=== PATIENT | female | born 1995 | race Caucasian/White ===

== ENCOUNTER 2019-12-05 13:36 | Emergency (ER) | payer OTHER, SELFPAY ==
--- NOTE | ~2019-12-05 | CT_ITS ---
EXAMINATION: CT abdomen pelvis w con INDICATION: Abdominal pain TECHNIQUE: Computed tomographic images of the abdomen and pelvis were obtained after the administrati on of 100 cc of Omnipaque 350 intravenous contrast. The dose-length product (DLP) was 593.19 mGy-cm. Automated exposure control and iterative reconstruction technique were employed. COMPARISON: 02/18/2015 FINDINGS: The lung bases are clear. The heart size is normal. An 11 mm fluid attenuation lesion of th e right hepatic lobe likely represents a cyst. The spleen, pancreas, gallbladder, and adrenal glands are normal. The kidneys are unremarkable. No pathologically enlarged abdominal or pelvic lymph nodes are identified. There is no free intraperitoneal gas or evidence of bowel obstruction. The appendix i s normal. IMPRESSION: 1. No CT correlate for the patient's symptoms. Reviewed, dictated and finalized at location A.
[2019-12-05 13:40] VITALS: BP 136/88; PULSE 126; RESP 20; TEMP 37.2; O2SAT 100
--- NOTE | 2019-12-05 14:09 | ED.GENADULT ---
HPI - General Adult General Chief complaint: GI Bleed Stated complaint: abd pain Time Seen by Provider: 12/05/19 13:52 Source: RN notes reviewed History of Present Illness HPI narrative: Patient presents emergency department from home for abdominal pain. States that for the past 2 weeks she has been having intermittent abdominal pain described as cramping. States is been associated with diarrhea that has been having blood in the stool. She states the blood is bright red in nature and associated diarrhea. States that the pain in the abdomen is worse on the right side. She states she has had similar episodes of diarrhea of blood before in the past but usually resolves on its own. States she is had no formal work-up for this. She has any fevers or chills chest pain shortness of breath or any other symptoms Related Data Home Medications Medication Instructions Recorded Confirmed citalopram mg 12/05/19 lisinopril-hydrochlorothiazide tablet 12/05/19 topiramate 12/05/19 Allergies Allergy/AdvReac Type Severity Reaction Status Date / Time Penicillins Allergy Intermediate Dyspnea / Verified 12/05/19 15:22 SOB amoxicillin [From Amoxil] Allergy Difficulty Verified 12/05/19 15:22 Swallowing levofloxacin Allergy Rash Verified 12/05/19 15:22 Review of Systems Review of Systems: Narrative: Gen.: Denies fevers or chills ENT: Denies congestion Respiratory: Denies shortness of breath or cough CV: Denies chest pain or palpitations GI: See HPI denies burning, urgency, frequency or hematuria Musculoskeletal: Denies back pain or muscle pain Neuro: Denies numbness, tingling, weakness or focal weakness Skin: Denies rash Except as documented, all other systems reviewed and negative [facility] Past Medical History Medical History (Updated 12/05/19 @ 17:22 by Yonny Krause DO) Hypertension Social History Social History (Updated 12/05/19 @ 14:10 by Yonny Krause DO) Smoking status: Never smoker Exam Narrative: Exam Narrative: APPEARANCE: No acute distress, nontoxic, resting in bed HEENT: Normocephalic, atraumatic, OMM RESPIRATORY: No respiratory distress, clear to auscultation bilaterally with no rhonchi wheezing or rales CARDIOVASCULAR: RRR s murmur ABDOMINAL: Soft, nondistended, diffusely tender to palpation, no rebound or guarding Rectal: No hemorrhoids or fissures no active bleeding small amount of soft brown stool that is Hemoccult negative MUSCULOSKELETAl: Moves all extremities. No clubbing, cyanosis or edema. NEURO: Awake and alert. Following commands, speech normal, no focal deficits SKIN:: Warm, dry. Normal Color PSYCHIATRIC: Normal affect/mood Course Course Emergency Course: Discussed with Dr. Musa presentation work-up. Agrees to plan for discharge and follow-up as an outpatient Patient states that they are feeling much better at this time. States abdominal pain has resolved. Repeat abdominal exam shows the patient's abdomen to be soft and nontender. Discussed with patient results of workup and diagnosis. Discussed need for follow-up with primary care physician, reasons to return to the emergency department in proper use of medication. Patient understands and agrees to current treatment plan Vital Signs Vital signs: Vital Signs Temperature 99.0 F 12/05/19 13:40 Pulse Rate 126 H 12/05/19 13:40 Respiratory Rate 20 12/05/19 13:40 Blood Pressure 136/88 12/05/19 13:40 Pulse Oximetry 100 12/05/19 13:40 Temperature 99.0 F 12/05/19 13:40 Pulse Rate 94 12/05/19 16:31 Respiratory Rate 18 12/05/19 16:31 Blood Pressure 109/64 12/05/19 16:31 Pulse Oximetry 100 12/05/19 16:31 Medical Decision Making MDM Narrative Medical decision making narrative: Patient's abdomen is soft without significant pain or signs of surgical abdomen on serial exams. Lab and x-ray evaluations are reviewed and patient is felt to be a reasonable candidate for outpatient management. Rimma
[2019-12-05 14:17] LABS: Basophils Percent Auto 0.4 % (0.2-1.2); Eosinophils Percent Auto 0.4 % (0-4.4); Hematocrit 38.6 % (37.0-47.0); Hemoglobin 13.4 g/dL (12.0-15.0); Immature Granulocyte Absolute 0.03 K/mm3 (0.00-0.031); Immature Granulocyte Percent A 0.4 % (0-0.5); Lymphocytes Absolute Auto 1.21 K/mm3 (0.9-3.2); Lymphocytes Percent Auto 14.5 % (18.3-44.2); Mean Corpuscular HGB Conc 34.7 g/dl (32-36); Mean Corpuscular Hemoglobin 30.9 pg (26-34); Mean Corpuscular Volume 89.1 fl (80-100); Mean Platelet Volume 10.5 fl (7.4-10.4); Monocytes Absolute Auto 0.5 K/mm3 (0.1-0.6); Monocytes Percent Auto 5.8 % (2.6-8.5); Neutrophils Absolute Auto 6.6 K/mm3 (1.3-6.7); Neutrophils Percent Auto 78.5 % (45.5-73.1); Platelet Count Result 304 k/mm3 (150-375); Red Blood Count 4.33 M/mm3 (4.2-5.4); Red Cell Distribution Width 12.2 % (11.5-14.5); White Blood Count 8.3 K/mm3 (4.5-10.0)
[2019-12-05 14:26] LABS: Prothrombin Time 12.7 Seconds (11.1-14.7)
[2019-12-05 14:27] LABS: Partial Thromboplastin Time 27.1 SECONDS (22.3-36.8)
[2019-12-05 14:30] LABS: Lactic Acid Reflex 1.1 mmol/L (0.7-2.1)
[2019-12-05 14:31] LABS: Alanine Aminotransferase 23 U/L (4-35); Albumin Level 4.8 g/dL (3.5-5.1); Alkaline Phosphatase 64 U/L (38-126); Anion Gap 15.2 mmol/L (7-16); Aspartate Amino Transferase 28 U/L (14-36); Bilirubin,Total 0.4 mg/dL (0.2-1.3); Blood Urea Nitrogen 11 mg/dL (7-17); Calcium 9.5 mg/dL (8.4-10.2); Carbon Dioxide 22 mmol/L (22-30); Chloride 100 mmol/L (98-107); Estimated CRCL calculation 88 ml/min; Estimated Glomerular Filt Rate > 60; Glucose 124 mg/dL (65-105); Potassium 3.2 mmol/L (3.4-5.0); Sodium 134 mmol/L (137-145)
[2019-12-05] MEDS: SODIUM CHLORIDE 0.9% IV 1,000 ML 999 ML IV CONT (15:16)
[2019-12-05] MEDS: ONDANSETRON INJ 4 MG/2 ML VIAL IV PUSH (15:17)
[2019-12-05 15:50] LABS: Add Urine Microscopic? NO; Appearance Urine Clear (Clear); Bacteria Urine Trace /hpf; Bilirubin Urine Negative (Negative); Blood Urine Negative (Negative); Color Urine Colorless (Yellow); Glucose Urine UA Negative (Negative); Ketones Urine Negative (Negative); Leukocyte Esterase Ur Negative LEU/UL (Negative); Nitrate Urine Negative (Negative); Protein Urine Negative (Negative); Specific Grav Ur 1.008 (1.001-1.035); Squamous Epithelial Cell Urine Few /hpf (Few); Urobilinogen Urine Negative mg/dL (<2.0); WBC Urine 0-3 /hpf
--- NOTE | 2019-12-05 15:58 | PC.NURSE ---
pt to imaging via stretcher with radiology at this time.
[2019-12-05 16:31] VITALS: BP 109/64; PULSE 94; RESP 18; O2SAT 100
--- NOTE | 2019-12-05 16:31 | PC.NURSE ---
ERP at bedside for stool occult exam.
[2019-12-05] MEDS: DICYCLOMINE HCL INJ 20 MG/2 ML VIAL IM (16:35)
[2019-12-05] MEDS: POTASSIUM CHLORIDE 20 MEQ TABLET PO (17:37)
[2019-12-05 17:38] VITALS: BP 108/62; PULSE 90; RESP 18; O2SAT 100
[2019-12-05 18:02] VITALS: BP 107/52; PULSE 81; RESP 18; TEMP 36.8; O2SAT 99
== END 2019-12-05 18:04 | disposition home or self-care (01) ==
PROVIDERS: Emergency Provider Emergency Medicine; PCP Internal Medicine
DX: R10.9 Unspecified abdominal pain (principal); R19.7 Diarrhea, unspecified; I10 Essential (primary) hypertension
CPT/HCPCS: 36415; 74177; 80053; 81003; 81025; 83605; 85025; 85610; 85730; 86850; 86900; 86901; 96365; 96372; 96375; 99284; A9270; J0131; J0500; J2405; J7030; Q9967

== ENCOUNTER 2020-06-14 00:28 | Outpatient (CLI) | payer OTHER, SELFPAY ==
[2020-06-14 17:34] LABS: SARS-CoV-2 RNA PCR Negative
== END 2020-06-14 00:29 | disposition home or self-care (01) ==
LOC: ANHCOVIDDT 00:28
PROVIDERS: PCP Internal Medicine; Visit Provider Obstetrics & Gynecology
DX: Z01.812 Encounter for preprocedural laboratory examination (principal); Z20.822 Contact with and (suspected) exposure to COVID-19
CPT/HCPCS: C9803; U0003; U0005

== ENCOUNTER 2020-06-14 08:02 | Outpatient (CLI) | payer OTHER, SELFPAY ==
--- NOTE | 2020-06-14 08:04 | ECG_ITS ---
Measurements Intervals [place] Rate: 90 P: 47 NC: 158 QRS: 8 QRSD: 86 T: 10 QT: 335 QTc: 412 Interpretive Statements SINUS RHYTHM LOW QRS VOLTAGE IN PRECORDIAL LEADS BORDERLINE R WAVE PROGRESSION, ANTERIOR LEADS BORDERLINE T WAVE ABNORMALITY- ANT/INF LEADS BASELINE ARTIFACT- I, III, AVL, AVF BORDERLINE ECG Electronically Signed On 06-14-2020 8:18:19 [employer] by Manohar Valles D.O.
[2020-06-14 08:49] LABS: Anion Gap 8 mmol/L (8-16); Blood Urea Nitrogen 9 mg/dL (7-17); Calcium 8.2 mg/dL (8.4-10.2); Carbon Dioxide 23 mmol/L (22-30); Chloride 107 mmol/L (98-107); Estimated Glomerular Filt Rate > 60; Glucose 116 mg/dL (65-105); Potassium 3.5 mmol/L (3.4-5.0); Sodium 138 mmol/L (137-145)
== END 2020-06-14 08:03 | disposition home or self-care (01) ==
LOC: ANHSURGERY 08:04
PROVIDERS: Anesthesiology; PCP Internal Medicine; Visit Provider Obstetrics & Gynecology
DX: Z79.899 Other long term (current) drug therapy (principal); I10 Essential (primary) hypertension; Z01.812 Encounter for preprocedural laboratory examination
CPT/HCPCS: 36415; 80048; 93005

== ENCOUNTER 2020-06-17 00:41 | Day surgery (SDC) | payer OTHER, SELFPAY ==
[2020-06-10 14:03] VITALS: BMI 36.3
[2020-06-17] VITALS (10 sets, daily range): BP systolic 100–128; BP diastolic 60–78; PULSE 72–119; RESP 10–20; TEMP 36.3–37.2; O2SAT 94–100
--- NOTE | 2020-06-17 06:58 | P.PNAN_ITS ---
Anes - Initial Pre Proc Eval Procedure: Operation Date: 06/17/20 07:30 Proposed Procedures p Laparoscopic Bilateral Ovarian Cystectomy - Xochilt Christine MD Date/Time: 06/17/20 06:58 Surgeon: Xochilt Christine MD Pre Op Diagnosis: Ovarian Cysts Patient Data Age: 24 Gender: F Height: 1.5 m Weight: 81.65 kg Allergies Allergy/AdvReac Type Severity Reaction Status Date / Time Penicillins Allergy Intermediate Dyspnea / Verified 12/05/19 15:22 SOB amoxicillin [From Amoxil] Allergy Difficulty Verified 12/05/19 15:22 Swallowing levofloxacin Allergy Rash Verified 12/05/19 15:22 Home Medications Medication Instructions Recorded Confirmed Type lisinopril-hydrochlorothiazide 20 tablet PO DAILY 12/05/19 06/10/20 History topiramate 25 mg PO DAILY 12/05/19 06/10/20 History bupropion HCl 150 mg PO DAILY 06/10/20 06/10/20 History norethindrone-e.estradiol-iron [Lo 1 tablet PO DAILY 06/10/20 06/10/20 History Loestrin Fe] sertraline 50 mg PO DAILY 06/10/20 06/10/20 History Patient hx anesthesia problems: none Family hx anesthesia problems: none [facility] Past Medical History Medical History (Updated 06/17/20 @ 07:00 by Von Britt MD) Anxiety Hypertension Obesity Social History Social History (Updated 12/05/19 @ 14:10 by Yonny Krause DO) Smoking status: Never smoker Tobacco type: e-cigarettes/vaping Second hand tobacco smoke exposure: No Additional smoking assessment comments: VAPES BUT ONLY RARELY Alcohol intake: current Drinks per week: 1 Substance use: never Substance use type: does not use Living arrangements: with family Additional living arrangements comments: LIVES WITH MOM AND SISTER Spiritual care concerns: No Anes - Eval Final PreProcedure Day of Procedure 06/17/20 06:58 Patient weight: obese Heart: regular rate and rhythm Lungs: clear to auscultation and normal air movement Airway: Mallampati scale class II Neurological: alert and oriented Last oral intake: >/= 8 hours ASA classification: III Emergent: no Anesthetic plan: proceed Anesthesia type and monitoring: general ETT Informed Consent: The patient's anesthetic plan and its attendant risks and benefits were discussed with the patient/family/POA. Questions were solicited and answers provided to the satisfaction of the patient/family/POA.
[2020-06-17] MEDS: ACETAMINOPHEN 500 MG TABLET 1000 MG PO (07:01)
[2020-06-17] MEDS: LACTATED RINGERS 1,000 ML 30 ML IV CONT ×2 (07:05→08:49)
[2020-06-17] MEDS: KETOROLAC 15 MG/ML VIAL (*BKC) IV PUSH (07:09)
--- NOTE | 2020-06-17 07:18 | WPDHPUPDATE1 ---
History and Physical Update Update Date/Time: 06/17/20 07:18 History and Physical has been reviewed, including an updated exam of the patient. There are NO changes in the patient's condition. Risks, benefits, and alternatives have been discussed and questions answered. Patient agrees to proceed with procedure.
[2020-06-17] MEDS: fentaNYL CITRATE INJ (*CRX) 100 MCG/2 ML VIAL 25 MCG IV PUSH ×4 (08:57→09:10)
--- NOTE | 2020-06-17 09:06 | PM.PROC ---
Procedure Note - Detailed Date of procedure: 06/17/20 Pre-op diagnosis: Ovarian Cysts Pelvic Pain Post-op diagnosis: same (endometriosis) Procedure performed: Laparoscopic Bilateral ovarian cystectomy, resection of paratubal cyst Description of procedure: The patient was taken the operating room. She was prepped and draped in the dorsal lithotomy position after induction of general anesthesia. A 5 mm left upper quadrant incision was made in the abdominal skin with a scalpel. A 5 mm trocar was inserted the intra-abdominal cavity under direct visualization of the scope. A 5 mm left lower quadrant incision was made with the scalp on the abdominal skin and a 5 mm trocar was inserted the intra-abdominal cavity under direct visualization of the scope. A 5 mm infraumbilical incision was made with scalpel and a 5 mm trocar was inserted into the intra-abdominal cavity under direct visualization of the scope. Large bilateral ovarian cysts removed using sharp and blunt dissection and cautery. Cyst capsules were peeled from the lumen of the cyst. Cut surfaces were were cauterized where there were bleeding. Hematoma was placed on the cut surfaces well. Paratubal cysts were removed from the right fallopian tube. This was done using sharp dissection and cautery. The pelvis was irrigated with copious amounts of normal saline. The pneumoperitoneum was reduced. The trocars were removed. The patient was taken recovery room stable condition. Sponge lap and needle counts were correct x2. [facility] Surgeon: Xochilt Christine MD Estimated blood loss (mL): 20 Drains: No Packing: No Complications: No immediate complications Condition: stable Disposition: PACU Findings: Large bilateral ovarian cysts, endometrial implant, right paratubal cysts
[2020-06-17] MEDS: HYDROmorphone HCL INJ (*CRX) 1 MG/ML SYR 0.25 MG IV PUSH ×4 (09:21→09:38)
[2020-06-17] MEDS: ONDANSETRON INJ 4 MG/2 ML VIAL IV PUSH (10:15)
[2020-06-17] MEDS: oxyCODONE HCL (*CRX) 5 MG TAB IR PO (10:39)
[2020-06-17] MEDS: SCOPOLAMINE 1.5 MG PATCH TRANSDERM (11:03)
== END 2020-06-17 11:40 | disposition home or self-care (01) ==
PROVIDERS: PCP Internal Medicine; Visit Provider Obstetrics & Gynecology
PROC: (CPT 49320; principal; 2020-06-17 07:30)
DX: N83.01 Follicular cyst of right ovary (principal); N83.02 Follicular cyst of left ovary; N83.8 Other noninflammatory disorders of ovary, fallopian tube and broad ligament; N80.3 Endometriosis of pelvic peritoneum; I10 Essential (primary) hypertension; F41.9 Anxiety disorder, unspecified; E66.9 Obesity, unspecified; Z68.36 Body mass index [BMI] 36.0-36.9, adult; F17.290 Nicotine dependence, other tobacco product, uncomplicated
CPT/HCPCS: 58662; 36415; 80048; 88305; 93005; A9270; C9803; J0330; J1100; J1170; J1885; J2250; J2405; J2704; J2710; J3010; J7030; J7120; U0003; U0005

== ENCOUNTER 2023-08-03 08:09 | Outpatient (CLI) | payer BC, OTHER, SELFPAY ==
--- NOTE | 2023-08-03 | ECG_ITS ---
Measurements Intervals [place] Rate: 87 P: 15 NH: 151 QRS: 14 QRSD: 90 T: 29 QT: 369 QTc: 445 Interpretive Statements SINUS RHYTHM LOW QRS VOLTAGE IN PRECORDIAL LEADS CANNOT RULE OUT SEPTAL INFARCT, AGE INDETERMINATE BORDERLINE ST-T WAVE ABNORMALITY- HIGH LATERAL LEADS BASELINE ARTIFACT- III, AVR, AVL, AVF ABNORMAL ECG NO PREVIOUS ECG AVAILABLE FOR COMPARISON Electronically Signed On 08-03-2023 8:54:47 CDT by Manohar Valles D.O.
== END 2023-08-03 08:10 | disposition home or self-care (01) ==
PROVIDERS: PCP Internal Medicine
DX: Z34.00 Encounter for supervision of normal first pregnancy, unspecified trimester (principal); R93.1 Abnormal findings on diagnostic imaging of heart and coronary circulation; R94.31 Abnormal electrocardiogram [ECG] [EKG]
CPT/HCPCS: 93005

== ENCOUNTER 2023-11-06 16:49 | Inpatient (IN) | payer BC, OTHER, SELFPAY ==
[2023-11-05 21:00] VITALS: BMI 40.5
[2023-11-06] VITALS (26 sets, daily range): BP systolic 101–138; BP diastolic 63–97; PULSE 80–115; TEMP 36.4
--- NOTE | 2023-11-06 17:09 | LDADM ---
This patient, Lee Ann Melgar, was admitted to Labor/Delivery/Recovery 107 on 11/06/23 at 16:49. Plans for labor, pain management and were discussed with patient. Patient/family oriented to hospital policies and general routines including ID bracelet, bed and alarms, visiting hours, pain management, procedures, bathroom and other care routines, personal items, smoking policy, room service/diet and guest tray routines, security routines, and visiting hours. Patient/Family are encouraged to report perceived risks to care and to ask questions if they do not understand what they are told or what they should do. See OBIX for further documentation.
[2023-11-06 17:35] LABS: Basophils Percent Auto 0.1 % (0.2-1.2); Eosinophils Percent Auto 0.2 % (0-4.4); Hematocrit 35.2 % (37.0-47.0); Hemoglobin 11.9 g/dL (12.0-15.0); Immature Granulocyte Absolute 0.09 K/mm3 (0.00-0.031); Immature Granulocyte Percent A 0.9 % (0-0.5); Lymphocytes Absolute Auto 1.66 K/mm3 (0.9-3.2); Lymphocytes Percent Auto 17.1 % (18.3-44.2); Mean Corpuscular HGB Conc 33.8 g/dl (32-36); Mean Corpuscular Hemoglobin 28.3 pg (26-34); Mean Corpuscular Volume 83.8 fl (80-100); Monocytes Absolute Auto 0.6 K/mm3 (0.1-0.6); Monocytes Percent Auto 6.5 % (2.6-8.5); Neutrophils Absolute Auto 7.3 K/mm3 (1.3-6.7); Neutrophils Percent Auto 75.2 % (45.5-73.1); Platelet Count Result 220 k/mm3 (150-375); Red Cell Distribution Width 13.5 % (11.5-14.5); White Blood Count 9.7 K/mm3 (4.5-10.0)
[2023-11-06 17:45] LABS: Alanine Aminotransferase 19 U/L (6-35); Albumin Level 3.9 g/dL (3.5-5.1); Alkaline Phosphatase 125 U/L (38-126); Anion Gap 8 mmol/L (4-12); Aspartate Amino Transferase 26 U/L (14-36); Bilirubin,Total 0.4 mg/dL (0.2-1.3); Blood Urea Nitrogen 6 mg/dL (7-17); Calcium 8.6 mg/dL (8.4-10.2); Carbon Dioxide 20 mmol/L (22-30); Chloride 108 mmol/L (98-107); Estimated Glomerular Filt Rate > 60; Glucose 96 mg/dL (65-110); Potassium 3.8 mmol/L (3.4-5.0); Sodium 136 mmol/L (137-145)
--- NOTE | 2023-11-06 17:57 | WPDANESEPP ---
Anes - Eval Pre Procedure Procedure: Labor epidural Date/Time: 11/06/23 17:57 Surgeon: Emmett Preop Diagnosis: Abdominal pain with contractions Pre Op Diagnosis: Induction of Labor Patient Data Age: 28 Gender: F Height: 1.5 m Weight: 91 kg Last Vital Signs Pulse 111 H 11/06/23 17:55 BP 138/82 11/06/23 17:55 Allergies Allergy/AdvReac Type Severity Reaction Status Date / Time amoxicillin [From Amoxil] Allergy Severe Difficulty Verified 06/17/20 07:11 Swallowing Penicillins Allergy Severe Dyspnea / Verified 06/17/20 07:11 SOB hydrocodone Allergy Hives Verified 11/02/23 15:27 levofloxacin AdvReac Mild Rash Verified 06/17/20 07:11 Home Medications Medication Instructions Recorded Confirmed Type sertraline 50 mg tablet 50 mg PO DAILY 06/10/20 11/06/23 History aspirin 81 mg tablet 81 mg PO DAILY 11/02/23 11/02/23 History labetalol 300 mg tablet 300 mg PO Q12H 11/02/23 11/02/23 History prenat.vits,tray,xqi-aast-aftxu 1 tablet PO DAILY 11/02/23 11/06/23 History Laboratory Tests 11/06/23 17:21 WBC 9.7 K/mm3 (4.5-10.0) RBC 4.20 M/mm3 (4.2-5.4) Hgb 11.9 L g/dL (12.0-15.0) Hct 35.2 L % (37.0-47.0) MCV 83.8 fl (80-100) MCH 28.3 pg (26-34) MCHC 33.8 g/dl (32-36) RDW 13.5 % (11.5-14.5) Plt Count 220 k/mm3 (150-375) MPV 11.0 H fl (7.4-10.4) Immature Gran % (Auto) 0.9 H % (0-0.5) Neut % (Auto) 75.2 H % (45.5-73.1) Lymph % (Auto) 17.1 L % (18.3-44.2) [place] % (Auto) 6.5 % (2.6-8.5) Eos % (Auto) 0.2 % (0-4.4) Baso % (Auto) 0.1 L % (0.2-1.2) Lymph # (Auto) 1.66 K/mm3 (0.9-3.2) [place] # (Auto) 0.6 K/mm3 (0.1-0.6) Eos # (Auto) 0.0 K/mm3 (0-0.3) Baso # (Auto) 0.0 K/mm3 (0.0-0.1) Abs Immat Gran (auto) 0.09 H K/mm3 (0.00-0.031) Absolute Neuts (auto) 7.3 H K/mm3 (1.3-6.7) Absolute Nucleated RBC 0.000 K/mm3 (0.0-0.012) Nucleated RBC % 0.0 % (0.0-0.2) Sodium 136 L mmol/L (137-145) Potassium 3.8 mmol/L (3.4-5.0) Chloride 108 H mmol/L (98-107) Carbon Dioxide 20 L mmol/L (22-30) Anion Gap 8 mmol/L (4-12) BUN 6 L mg/dL (7-17) Creatinine 0.60 L mg/dL (0.7-1.0) Estim Creat Clear Calc Not Reportable Estimated GFR > 60 (59 - ) Glucose 96 mg/dL (65-110) Calcium 8.6 mg/dL (8.4-10.2) Total Bilirubin 0.4 mg/dL (0.2-1.3) AST 26 U/L (14-36) ALT 19 U/L (6-35) Alkaline Phosphatase 125 U/L (38-126) Total Protein 7.0 g/dL (6.3-8.2) Albumin 3.9 g/dL (3.5-5.1) RPR Pending HIV 1&2 Ab/P24 Ag 4thGn Pending : gestational age HCG: positive Patient hx anesthesia problems: none Family hx anesthesia problems: none Results Review: All pre-operative results and documents have been reviewed as part of the pre-operative evaluation. [facility], [facility] Past Medical History Medical History Anxiety Hypertension Obesity Family History Family History Father Hypertension Mother Hypertension Social History Social History (Updated 12/05/19 @ 14:10 by Yonny Krause, DO) Smoking status: Never smoker Tobacco type: e-cigarettes/vaping Second hand tobacco smoke exposure: No Additional smoking assessment comments: VAPES BUT ONLY RARELY Alcohol intake: current Drinks per week: 1 Substance use: never Substance use type: does not use Do You Feel Safe in your Home?: Yes Lack of Transportation: No Lack of Food: Never True Current Housing: I Have Housing Concerned About Future Housing: No Difficulty Paying Gas/Electric Bills: No Difficulty Paying for Meds: No Currently Unemployed: No Education: Trade/Vocational Certificate Difficulty w/ Childcare or Family Care: No Living arrangements: with family Jn roman
[2023-11-06] MEDS: miSOPROStol 25 MCG TABLET 50 MCG PO (18:00)
[2023-11-06 18:26] LABS: HIV 1/2 Ab P24 Ag Result Negative (Negative)
[2023-11-06] MEDS: LACTATED RINGERS 1,000 ML 125 ML IV CONT (21:50)
[2023-11-06] MEDS: LABETALOL HCL 100 MG TABLET 300 MG PO (21:51)
[2023-11-07] VITALS (173 sets, daily range): BP systolic 85–130; BP diastolic 44–91; PULSE 50–131; TEMP 36.2–36.6; O2SAT 89–100
[2023-11-07] MEDS: ZOLPIDEM TARTRATE (*CRX) 5 MG TABLET PO (01:01)
[2023-11-07] MEDS: miSOPROStol 25 MCG TABLET BUCCAL ×2 (01:01→05:29)
--- NOTE | 2023-11-07 08:02 | PM.IMHP ---
H&P: HPI History of Present Illness Date/Time: 11/07/23 08:02 Chief Complaint: pt arrives for an IOL for chronic hypertension, controlled by medication. today bp normotensive, denies symptoms, labs reviewed. has been complicated by history of covid, has history of anxiety managed on sertraline Review of Systems Review of Systems: All systems reviewed & are unremarkable except as noted in HPI and below PMFSH Past Medical History Medical History Anxiety Hypertension Obesity Family History Family History Father Hypertension Mother Hypertension Social History Social History (Updated 12/05/19 @ 14:10 by Yonny Krause, DO) Smoking status: Never smoker Tobacco type: e-cigarettes/vaping Second hand tobacco smoke exposure: No Additional smoking assessment comments: VAPES BUT ONLY RARELY Alcohol intake: current Drinks per week: 1 Substance use: never Substance use type: does not use Do You Feel Safe in your Home?: Yes Lack of Transportation: No Lack of Food: Never True Current Housing: I Have Housing Concerned About Future Housing: No Difficulty Paying Gas/Electric Bills: No Difficulty Paying for Meds: No Currently Unemployed: No Education: Trade/Vocational Certificate Difficulty w/ Childcare or Family Care: No Living arrangements: with family Additional living arrangements comments: LIVES WITH MOM AND SISTER Spiritual care concerns: No Meds Home Medications and Allergies Home Medications Medication Instructions Recorded Confirmed Type sertraline 50 mg tablet 50 mg PO DAILY 06/10/20 11/06/23 History aspirin 81 mg tablet 81 mg PO DAILY 11/02/23 11/02/23 History labetalol 300 mg tablet 300 mg PO Q12H 11/02/23 11/02/23 History prenat.vits,tray,uqx-hdhc-mldqm 1 tablet PO DAILY 11/02/23 11/06/23 History Allergies Allergy/AdvReac Type Severity Reaction Status Date / Time amoxicillin [From Amoxil] Allergy Severe Difficulty Verified 06/17/20 07:11 Swallowing Penicillins Allergy Severe Dyspnea / Verified 06/17/20 07:11 SOB hydrocodone Allergy Hives Verified 11/02/23 15:27 levofloxacin AdvReac Mild Rash Verified 02/04/21 07:11 Vital Signs Vital Signs - 24 hr 11/06/23 17:55 11/06/23 18:01 11/06/23 18:00 Temperature 36.4 C Pulse Rate 111 H 115 H Blood Pressure 138/82 114/76 11/06/23 18:16 11/06/23 18:31 11/06/23 18:46 Temperature Pulse Rate 106 H 100 102 H Blood Pressure 119/77 127/80 130/74 11/06/23 19:01 11/06/23 19:16 11/06/23 19:31 Temperature Pulse Rate 106 H 96 97 Blood Pressure 129/70 105/65 116/77 11/06/23 19:46 11/06/23 20:01 11/06/23 20:16 Temperature Pulse Rate 97 106 H 97 Blood Pressure 128/75 123/85 113/71 11/06/23 20:31 11/06/23 21:16 11/06/23 21:31 Temperature Pulse Rate 95 94 91 Blood Pressure 121/69 123/73 117/74 11/06/23 21:46 11/06/23 22:01 11/06/23 22:03 Temperature Pulse Rate 94 89 88 Blood Pressure 117/75 110/97 H 123/69 11/06/23 22:17 11/06/23 22:31 11/06/23 22:46 Temperature Pulse Rate 106 H 90 80 Blood Pressure 121/71 117/71 119/73 11/06/23 23:01 11/06/23 23:17 11/06/23 23:31 Temperature Pulse Rate 85 90 96 Blood Pressure 113/71 106/63 101/84 11/06/23 23:46 11/07/23 00:01 11/07/23 00:16 Temperature Pulse Rate 100 98 98 Blood Pressure 110/72 105/82 118/73 11/07/23 00:28 11/07/23 00:31 11/07/23 00:46 Temperature 36.4 C L Pulse Rate 95 94 Blood Pressure 130/89 112/60 11/07/23 01:01 11/07/23 01:16 11/07/23 01:31 Temperature Pulse Rate 98 88 86 Blood Pressure 114/66 102/59 L 104/56 L 11/07/23 01:46 11/07/23 02:01 11/07/23 02:16 Temperature Pulse Rate 90 131 H 95 Blood Pressure 101/55 L 96/49 L 109/78 11/07/23 02:31 11/07/23 02:46 11/07/23 03:01 Temperature Pulse Rate 105
[2023-11-07] MEDS: miSOPROStol 25 MCG TABLET 50 MCG BUCCAL (09:40)
[2023-11-07] MEDS: SERTRALINE HCL 50 MG TABLET PO (10:59)
[2023-11-07] MEDS: fentaNYL CITRATE INJ (*CRX) 100 MCG/2 ML VIAL 50 MCG IV PUSH ×2 (12:29→17:58)
--- NOTE | 2023-11-07 12:42 | PM.OBPNLAB ---
Pain Control Date/time seen: 11/07/23 12:42 Pt cramping, FHR category 1, cervix /-3, very soft, unable to place cook, attempt at AROM unsuccessful, will proceed with pitocin when able
[2023-11-07] MEDS: OXYTOCIN 30 UNITS/NS 500 ML 30 UNITS/500 ML BAG 6 UNITS IV CONT (13:36)
[2023-11-07] MEDS: LACTATED RINGERS 1,000 ML 125 ML IV CONT ×2 (16:46→23:16)
--- NOTE | 2023-11-07 18:03 | PM.OBPNLAB ---
Pain Control Date/time seen: 11/07/23 18:03 Comments: SVE /-3, AROM large amount of clear, odorless fluid, anticipate vaginal delivery
[2023-11-07] MEDS: fentaNYL CITRATE INJ (*CRX) 100 MCG/2 ML VIAL IV PUSH (18:45)
[2023-11-07] MEDS: ONDANSETRON INJ 4 MG/2 ML VIAL IV PUSH (19:50)
[2023-11-07] MEDS: CALCIUM CARBONATE (TUMS) 500 MG (200 MG ELEMENTAL) 400 MG (20:10)
[2023-11-07] MEDS: LORATADINE 10 MG TABLET PO (23:51)
[2023-11-07] MEDS: METOCLOPRAMIDE HCL INJ 10 MG/2 ML VIAL IV PUSH (23:51)
[2023-11-08] VITALS (310 sets, daily range): BP systolic 77–138; BP diastolic 43–103; PULSE 36–135; RESP 15–20; TEMP 36.6–37.9; O2SAT 84–100
[2023-11-08] MEDS: diphenhydrAMINE HCl INJ 50 MG/ML VIAL 25 MG IV PUSH (01:25)
[2023-11-08] MEDS: LACTATED RINGERS 1,000 ML 125 ML IV CONT ×2 (07:22→13:57)
[2023-11-08] MEDS: SERTRALINE HCL 50 MG TABLET PO (11:24)
[2023-11-08] MEDS: CALCIUM CARBONATE (TUMS) 500 MG (200 MG ELEMENTAL) 400 MG PO (11:25)
[2023-11-08] MEDS: ceFAZolin 2 GM/D5W 50 ML 2 GM/50 ML BAG IVPB ×2 (12:01→20:01)
[2023-11-08] MEDS: OXYTOCIN 30 UNITS/NS 500 ML 30 UNITS/500 ML BAG 6 UNITS IV CONT (13:11)
[2023-11-08] MEDS: ACETAMINOPHEN 500 MG TABLET 1000 MG PO (14:17)
[2023-11-08] MEDS: ONDANSETRON INJ 4 MG/2 ML VIAL IV PUSH (14:24)
[2023-11-08 14:37] LABS: Rapid Plasma Reagin Non-Reactive (NonReactive)
[2023-11-08] MEDS: SODIUM CHLORIDE 0.9% IV 300 ML 600 ML I-UTERINE (15:43)
--- NOTE | 2023-11-08 18:11 | PM.OBPNLAB ---
Pain Control Date/time seen: 11/08/23 18:11 Comments: pt cervix 5-6/80/-2, no change in a few hours, FHR category 2, discussed with pt options. decision made to move forward with a primary section, dr. english aware
[2023-11-08] MEDS: FAMOTIDINE 20 MG/2 ML VIAL IV PUSH (18:18)
[2023-11-08] MEDS: AZITHROMYCIN 500 MG/NS 250 ML 500 MG/250 ML BAG 250 MG IVPB (18:25)
--- NOTE | 2023-11-08 18:35 | PM.IMHP ---
H&P: HPI History of Present Illness Date/Time: 11/08/23 18:35 Chief Complaint: Term Narrative: 28-year-old primiparous female at term whose was complicated by hypertension. She has failed to progress beyond 5 cm in their nonreassuring heart tones. We have agreed perform delivery. she understands risks. The procedure has been explained to her in detail. She understands injuries may occur that result in hospitalization, more surgery, and severe illness. She understands risk of hemorrhage and infection. she understands there are risks, benefits, and alternatives to delivery. She denies any nausea, vomiting, fever, chills. She denies any chest pain or shortness of breath. Review of Systems Review of Systems: All systems reviewed & are unremarkable except as noted in HPI and below Constitutional: Constitutional: Denies chills, Denies fatigue, Denies fever(s) and Denies weakness Eyes: Eyes: Denies blurry vision, Denies change in vision, Denies loss of peripheral vision, Denies loss of vision, Denies other visual disturbances and Denies eye pain ENT: Denies vertigo, Denies dizziness, Denies hearing loss, Denies mouth pain, Denies nasal obstruction, Denies neck mass and Denies neck pain Cardiovascular: Cardiovascular: Denies chest pain, Denies diaphoresis, Denies syncope, Denies leg edema and Denies dyspnea Respiratory: Respiratory: Denies chest congestion, Denies cough, Denies hemoptysis, Denies dyspnea and Denies wheezing Gastrointestinal: Gastrointestinal: Denies abdominal pain, Denies constipation, Denies diarrhea, Denies nausea and Denies vomiting Genitourinary: Genitourinary: Denies hematuria, Denies change in libido, Denies nocturia, Denies genital lesions, Denies flank pain and Denies urinary urgency Musculoskeletal: Musculoskeletal: Denies abnormal gait, Denies back pain, Denies myalgias, Denies arthralgias, Denies joint swelling, Denies muscle weakness and Denies neck pain Integumentary/Breasts: Skin/Breast: Denies swelling, Denies breast pain, Denies breast mass, Denies dry skin, Denies nipple discharge, Denies unusual bruising and Denies jaundice Neurologic: Denies Neuro-related abnormal movements, Denies Abnormal speech present, Denies abnormal gait, Denies behavioral changes, Denies confusion, Denies vertigo, Denies dizziness, Denies syncope, Denies loss of vision, Denies memory loss, Denies convulsions and Denies weakness Psychiatric: Psychiatric: Denies abnormal sleep pattern, Denies behavioral changes, Denies change in libido, Denies confusion, Denies depression, Denies anhedonia and Denies memory loss Endocrine: Endocrine: Reports no additional endocrine complaints, Denies change in libido and Denies fatigue Hematologic/Lymphatic: Hematologic/Lymphatic: Reports no additional hematologic/lymphatic complaints Allergic/Immunologic: Allergic/Immunologic: Reports no additional allergic/immunologic complaints and Denies wheezing PMFSH Past Medical History Medical History Anxiety Hypertension Obesity Family History Family History Father Hypertension Mother Hypertension Social History Social History (Updated 12/05/19 @ 14:10 by Yonny Krause, DO) Smoking status: Never smoker Tobacco type: e-cigarettes/vaping Second hand tobacco smoke exposure: No Additional smoking assessment comments: VAPES BUT ONLY RARELY Alcohol intake: current Drinks per week: 1 Substance use: never Substance use type: does not use Do You Feel Safe in your Home?: Yes Lack of Transportation: No Lack of Food: Never True Current Housing: I Have Housing Concerned About Future Housing: No Difficulty Paying Gas/Electric Bills: No Difficulty Paying for Meds: No Currently Unemployed: No Education: Trade/Vocational Certificate Difficulty w/
--- NOTE | 2023-11-08 18:39 | WPDHPUPDATE1 ---
History and Physical Update Update Date/Time: 11/08/23 18:39 History and Physical has been reviewed, including an updated exam of the patient. There are NO changes in the patient's condition. Risks, benefits, and alternatives have been discussed and questions answered. Patient agrees to proceed with procedure.
--- NOTE | 2023-11-08 18:45 | P.PNAN_ITS ---
Anes - Eval Final PreProcedure Day of Procedure 11/08/23 18:45 Patient weight: morbidly obese Heart: regular rate and rhythm Lungs: clear to auscultation and normal air movement Airway: Mallampati scale class II Neurological: alert and oriented Last oral intake: >/= 8 hours ASA classification: III Emergent: no Anesthetic plan: proceed Anesthesia type and monitoring: regional spinal and standard monitoring Other findings: To C/S Results Review: All pre-operative results and documents have been reviewed as part of the pre- operative evaluation. Informed Consent: The patient's anesthetic plan and its attendant risks and benefits were discussed with the patient/family/POA. Questions were solicited and answers provided to the satisfaction of the patient/family/POA.
--- NOTE | 2023-11-08 19:25 | P.PCNOB_ITS ---
OB - Delivery Note Procedure Delivery date: 11/08/23 Pre-op diagnosis: Arrest of Dilation, Gestational Hypertension and Non- Reassuring Status Post-op Diagnosis: Same Procedure Performed: Primary Surgeon: Nikolay Christine MD Anesthesia type: Epidural Description of Procedure/Findings: The patient was taken the operating room.? She was prepped and draped in dorsal supine position with a leftward tilt.? This was done after spinal anesthetic was applied.? A low-transverse skin incision was made and carried down till of the fascia with the knife.? The fascial incision was made with the knife.? The fascial incision was extended laterally with Fitzgerald scissors.? The fascia was tented upward superiorly and inferiorly the rectus muscles were dissected off bluntly.? The rectus muscles were the midline.? The preperitoneal fat and peritoneum were dissected open bluntly at the superior aspect of the separat ed rectus muscles.? The peritoneal incision was extended superior and inferior with good position of bladder.? The uterine incision was made with a scalpel down to the level of the amniotic cavity.? The amniotic cavity was entered bluntly.? The was delivered.? The cord was clamped and cut and the infant was handed off to waiting pediatric staff.? Cord bloods were obtained.? The placenta was removed manually.? The uterus was exteriorized.? The uterus was cleared of all clots, debris and membranes.? The uterus was closed in 0 Vicryl running lock fashion.? An imbricating over a was placed along the incision line as well.? The uterus was returned to the abdomen.? The gutters were cleared of all clots and debris.? The fascia was closed with 0 Vicryl running fashion.? The subcutaneous tissue was irrigated pinpoint bleeders were cauterized.? The skin was closed with subcuticular absorbable dre.? The skin incision line was covered with glue.? The patient tolerated the procedure well.? She has taken recovery room in stable condition.? Sponge lap and needle counts were correct x2.? Baby Date of : 11/08/23 Weeks of gestation at delivery: 37
[2023-11-08] MEDS: MORPHINE SULFATE INJ (*CRX) 10 MG/ML AMP 2 MG IV PUSH (20:12)
[2023-11-08] MEDS: OXYTOCIN 30 UNITS/NS 500 ML 30 UNITS/500 ML BAG 125 UNITS IV CONT (20:22)
--- NOTE | 2023-11-08 21:06 | PC.NURSE ---
Heart tones in OR noted to be 150 with moderate variability
[2023-11-08] MEDS: LIDOCAINE 5% PATCH 1 PATCH TRANSDERM (22:10)
[2023-11-08] MEDS: ACETAMINOPHEN 325 MG TABLET 650 MG PO (22:10)
[2023-11-08] MEDS: KETOROLAC 15 MG/ML VIAL (*BKC) IV PUSH (22:11)
--- NOTE | 2023-11-08 23:00 | PC.NURSE ---
2100 dose of labetolol 300mg held for BP of 117/66- unable to choose not given option in JUL- spoke with Tyrone in Pharmacy and he was unsure as to why this was occuring. Returned meds in [facility]
[2023-11-09 03:00] VITALS: BP 112/70; PULSE 98; RESP 16; TEMP 36.8; O2SAT 100
[2023-11-09] MEDS: MORPHINE SULFATE (*CRX) 2 MG/ML INJ IV PUSH (03:29)
[2023-11-09 05:16] LABS: Hematocrit 31.5 % (37.0-47.0); Hemoglobin 9.9 g/dL (12.0-15.0); Mean Corpuscular HGB Conc 31.4 g/dl (32-36); Mean Corpuscular Hemoglobin 28.1 pg (26-34); Mean Corpuscular Volume 89.5 fl (80-100); Mean Platelet Volume 11.6 fl (7.4-10.4); Platelet Count Result 208 k/mm3 (150-375); Red Blood Count 3.52 M/mm3 (4.2-5.4); Red Cell Distribution Width 13.9 % (11.5-14.5); White Blood Count 27.6 K/mm3 (4.5-10.0)
[2023-11-09 05:39] LABS: Lymphocytes Absolute Manual 1.65 K/mm3 (1.1-4.5); Lymphocytes Percent Manual 6 % (18-44); Monocytes Percent Manual 4 % (3-9); Total Cells Counted 100
[2023-11-09 05:40] LABS: Band Neutrophils Percent 6 % (0-6); Neutrophils Absolute Manual 24.84 K/mm3 (1.7-7.2); Neutrophils Percent Manual 84 % (46-73); Platelet Estimate Adequate (Adequate)
[2023-11-09 05:41] LABS: Anisocytosis 1+; Hypochromasia 1+; Ovalocytes 1+; Schistocytes None Seen
[2023-11-09] MEDS: KETOROLAC 15 MG/ML VIAL (*BKC) IV PUSH ×3 (06:15→18:57)
[2023-11-09] MEDS: ACETAMINOPHEN 325 MG TABLET 650 MG PO ×3 (06:15→18:57)
--- NOTE | 2023-11-09 07:38 | P.PNOB_ITS ---
OB - PN: Subj Subjective Date/time seen: 11/09/23 07:38 Interval history: pp day 1 post op primary section baby doing well, checking sugars OB - PN: Obj Data Labs 11/09/23 03:30 11/06/23 17:21 Labs: Laboratory Results - last 24 hr 11/06/23 11/09/23 17:21 03:30 WBC 27.6 H RBC 3.52 L Hgb 9.9 L Hct 31.5 L MCV 89.5 D MCH 28.1 MCHC 31.4 L RDW 13.9 Plt Count 208 MPV 11.6 H Immature Gran % (Auto) Not Reportable Neut % (Auto) Not Reportable Lymph % (Auto) Not Reportable [place] % (Auto) Not Reportable Eos % (Auto) Not Reportable Baso % (Auto) Not Reportable Lymph # (Auto) Not Reportable [place] # (Auto) Not Reportable Eos # (Auto) Not Reportable Baso # (Auto) Not Reportable Abs Immat Gran (auto) Not Reportable Absolute Neuts (auto) Not Reportable Absolute Nucleated RBC Not Reportable Total Counted 100 Neutrophils % (Manual) 84 H Band Neutrophils % 6 Lymphocytes % (Manual) 6 L Monocytes % (Manual) 4 Nucleated RBC % Not Reportable Abs Neuts (Manual) 24.84 H Abs Lymphs (Manual) 1.65 Abs Monocytes (Manual) 1.10 H Platelet Estimate Adequate Hypochromasia 1+ Anisocytosis 1+ Ovalocytes 1+ Schistocytes None seen RPR Non-reactive OB - PN A/P Plan day: 1 Plan: routine care Time Spent With Patient Time: Total time spent is greater than 50% in coordination of care (as documented) at patient's floor/unit and/or counseling patient: Review of Systems Review of Systems: All systems reviewed & are unremarkable except as noted in HPI and below Exam Const: General: cooperative and healthy appearing Chest: Chest palpation & inspection: normal inspection of the chest Resp: Effort & Inspection: normal respiratory effort Skin: General skin exam: normal color Extrem: General: normal to inspection Psych: Appearance: grossly normal
[2023-11-09] MEDS: DOCUSATE SODIUM 100 MG CAPSULE PO ×2 (08:39→16:33)
[2023-11-09] MEDS: MULTIVIT/MIN/PREN/FOL AC/IRON TABLET 1 TAB PO (08:39)
[2023-11-09] MEDS: POLYSACCHARIDE IRON COMPLEX 150 MG CAPSULE PO ×2 (08:39→16:33)
[2023-11-09] MEDS: SERTRALINE HCL 50 MG TABLET PO (08:40)
[2023-11-09] MEDS: SIMETHICONE 80 MG TAB.CHEW PO ×3 (08:40→16:33)
[2023-11-09 09:08] VITALS: BP 117/78; PULSE 92; RESP 20; TEMP 37.1; O2SAT 100
--- NOTE | 2023-11-09 09:15 | PC.NURSE ---
Introductions were made, then consulted with patient to assess needs related to . Mother led the conversation with her?plans to feed?her infant and the?experience so far. Mother states infant is sleepy and does not wake to breastfeed. Educated this is typical for all newborns, especially since baby is 37 weeks. She also has concerns that 'stops breathing' when he cries and that undressing him and waking him to feed causes him to cry. She is choosing to bottle feed and pump at this time. Patient has her own pump from home. Encouraged regular pumping for milk supply and breast stimulation if infant is not stimulating her breasts on a regular basis. Discussed milk production and building/maintaining a milk supply. Offered to help patient set up her pump and make sure she has a good flange fit. Patient states she will call out if she needs assistance with pump or if she decides to put infant to the breast. Parents voiced understanding of information, demonstrated learning and will call if there is a request for assistance. Reported to the Primary RN.
[2023-11-09 12:28] VITALS: BP 119/80; PULSE 101; RESP 20; TEMP 36.7; O2SAT 99
--- NOTE | 2023-11-09 14:17 | WPDANLDPN2 ---
Anes-Prog Note L&D Date/Time: 11/09/23 14:17 Comfortable throughout: section Neuraxial method: epidural Epidural/Spinal procedure site: clean & non-tender Neuro status: Neuro function grossly intact. Cardiovascular status: normal Respiratory status: normal Airway patency: baseline Mental status: baseline Post-Op hydration status: normal Vital Signs: Last Vital Signs Temp 36.7 C 11/09/23 12:28 Pulse 101 H 11/09/23 12:28 Resp 20 11/09/23 12:28 BP 119/80 11/09/23 12:28 Pulse Ox 99 11/09/23 12:28 O2 Del Method Room Air 11/08/23 22:16 Pain score (VAS): 3/10 I/O: Intake & Output 11/08/23 11/09/23 11/09/23 23:59 07:59 15:59 Intake Total 100 Output Total 1365 Balance -1265 Post-procedural complaints: none Patient feedback: Patient satisfied with anesthetic care.
--- NOTE | 2023-11-09 14:18 | WPDANLDNPN2 ---
Anes-Prog Note L&D-Neuraxial Date/Time: 11/09/23 14:18 Neuraxial medications: epidural PF morphine Opiod-related complaints: none Patient feedback: Patient satisfied with post-operative pain management.
[2023-11-09 16:30] VITALS: BP 105/63; PULSE 100; RESP 16; TEMP 36.2
[2023-11-09] MEDS: LIDOCAINE 5% PATCH 1 PATCH TRANSDERM (22:05)
[2023-11-10] MEDS: ACETAMINOPHEN 325 MG TABLET 650 MG PO ×4 (01:16→19:57)
[2023-11-10] MEDS: IBUPROFEN 600 MG TABLET PO ×4 (01:16→19:58)
[2023-11-10] MEDS: SIMETHICONE 80 MG TAB.CHEW PO ×3 (07:24→17:40)
[2023-11-10] MEDS: POLYSACCHARIDE IRON COMPLEX 150 MG CAPSULE PO ×2 (07:24→17:40)
[2023-11-10 07:25] VITALS: BP 118/78; PULSE 99; RESP 16; TEMP 36.6; O2SAT 99
--- NOTE | 2023-11-10 08:20 | PC.NURSE ---
Breast pump provided due to ineffective feedings. Instructions given on cleaning, care, usage, that there should be no pain, pumping schedule for milk production, collection, and storage of human milk. Patient was assessed for correct placement, flange size, to pump for comfort and nipple stretching/stimulation for adequate milk production every 3 hours (8 times in 24 hours) 1-2 times at night.
--- NOTE | 2023-11-10 08:25 | P.PNOB_ITS ---
OB - PN: Subj Subjective Date/time seen: 11/10/23 08:25 Interval history: pp day 1 post op primary section baby doing well, checking sugars Patient comments: no complaints, pain well controlled, incisional pain, tole rating diet and flatus present OB - PN: Obj Data Labs 11/09/23 03:30 11/06/23 17:21 OB - PN A/P Plan day: 2 Plan: routine care Comments: POD#2 LTCS - no problems, Time Spent With Patient Time: Total time spent is greater than 50% in coordination of care (as documented) at patient's floor/unit and/or counseling patient: Exam Const: General: comfortable, no acute distress and alert Resp: Effort & Inspection: normal respiratory effort Auscultation: no crackles, no rales and no rhonchi Cardio: Rate: regular rate Heart sounds: no click, no murmurs and no rubs GI: Inspection: non-distended Auscultation: normal bowel sounds Other: Incision - CDI Extrem: General: normal to inspection, no pedal edema and no calf tenderness
[2023-11-10] MEDS: MULTIVIT/MIN/PREN/FOL AC/IRON TABLET 1 TAB PO (09:44)
[2023-11-10] MEDS: DOCUSATE SODIUM 100 MG CAPSULE PO ×2 (09:44→17:40)
[2023-11-10] MEDS: SERTRALINE HCL 50 MG TABLET PO (09:44)
[2023-11-10] MEDS: oxyCODONE/ACETAMINOPHEN (*CRX) 5-325 MG TABLET 1 TABLET PO ×2 (17:43→23:54)
[2023-11-10 20:00] VITALS: BP 132/94; PULSE 107; RESP 16; TEMP 37.2; O2SAT 100
[2023-11-10] MEDS: LIDOCAINE 5% PATCH 1 PATCH TRANSDERM (23:04)
[2023-11-11] MEDS: diphenhydrAMINE HCl CAP 25 MG CAPSULE PO (01:57)
[2023-11-11] MEDS: ACETAMINOPHEN 325 MG TABLET 650 MG PO ×2 (01:57→08:13)
[2023-11-11] MEDS: IBUPROFEN 600 MG TABLET PO ×2 (01:57→08:13)
[2023-11-11 07:54] VITALS: BP 124/88; PULSE 96; RESP 16; TEMP 36.6; O2SAT 100
[2023-11-11] MEDS: SIMETHICONE 80 MG TAB.CHEW PO (08:12)
[2023-11-11] MEDS: DOCUSATE SODIUM 100 MG CAPSULE PO (08:12)
[2023-11-11] MEDS: SERTRALINE HCL 50 MG TABLET PO (08:12)
[2023-11-11] MEDS: MULTIVIT/MIN/PREN/FOL AC/IRON TABLET 1 TAB PO (08:12)
[2023-11-11] MEDS: POLYSACCHARIDE IRON COMPLEX 150 MG CAPSULE PO (08:12)
--- NOTE | 2023-11-11 11:22 | P.PNOB_ITS ---
OB - PN: Subj Subjective Date/time seen: 11/11/23 11:22 Interval history: pp day 1 post op primary section baby doing well, checking sugars Patient comments: no complaints, pain well controlled, incisional pain, tole rating diet and flatus present OB - PN: Obj Data Labs 11/09/23 03:30 11/06/23 17:21 OB - PN A/P Plan day: 3 Plan: routine care, discharge home and other Comments: Incision check in one week. Given precautions Time Spent With Patient Time: Total time spent is greater than 50% in coordination of care (as documented) at patient's floor/unit and/or counseling patient: Exam Const: General: comfortable, no acute distress and alert Resp: Effort & Inspection: normal respiratory effort Auscultation: no crackles, no rales and no rhonchi Cardio: Rate: regular rate Heart sounds: no click, no murmurs and no rubs GI: Inspection: non-distended GI Palp: No Tenderness to palpation present (GI) Auscultation: normal bowel sounds Other: Incision - CDI Extrem: General: normal to inspection, no pedal edema and no calf tenderness
--- NOTE | 2023-11-11 11:23 | PM.OBDSVD ---
DS: Admitting Diagnosis Discharge Date November 11, 2019 Admitting Diagnosis term DS: Discharge Diagnosis Discharge Diagnosis (1) delivery delivered: Code(s): O82 - Encounter for delivery without indication Status: Acute OB - DS: Summary OB Procedures : None OB Procedures Intrapartum: OB Procedures: : None Peripartum Data Procedures: Procedures Operation Date: 11/08/23 18:10 Actual Procedure Side Surgeon p Section Not Applicable Nikolay Christine MD Time Spent with Patient Time attestation: Total time spent providing and/or coordinating discharge services: DS: Data Data Completed and Pending Pending studies at discharge: Pending at discharge 11/08/23 18:59 Surgical [PTH] Routine Discharge Plan Discharge Discharging Clinician: Nikolay Christine Patient Disposition: Home, Self-Care Activity: pelvic rest Diet: regular Patient Instructions: Antibiotic Form Stand Alone Forms: General Discharge Information Follow-up/Referrals: Nikolay Christine MD [Physician] - Discharge Medications: New oxycodone-acetaminophen 5-325 mg tablet 1 tablet PO Q4H PRN (Reason: pain) Qty: 25 0RF Continued sertraline 50 mg Tablet 50 mg PO DAILY Adult Low Dose Aspirin 81 mg Tablet 81 mg PO DAILY labetalol 300 mg Tablet 300 mg PO Q12H #2 Tablet 1 tablet PO DAILY Date of admission: 11/06/23 16:49 Primary Care Provider: Ely,Marin Multani Admitting Provider: Nikolay Christine Attending physician on admission: Nikolay Christine Condition: Stable
--- NOTE | 2023-11-11 12:00 | PC.NURSE ---
Patient viewed the discharge video Mother & Baby Care, The First Two Weeks . Patient was given the opportunity and encouraged to ask questions. Patient verbalized understanding of information shared and has been given the mother/baby guide for home reference.
[2023-11-12 16:05] VITALS: BP 127/89; PULSE 95; RESP 18; TEMP 36.6; O2SAT 99
== END 2023-11-11 13:05 | disposition home or self-care (01) | DRG 806 ==
LOC: ANHLDR 16:54 → ANHOB2 11-08 21:53
PROVIDERS: Admitting Provider Obstetrics & Gynecology; PCP Internal Medicine; Referring Provider Advanced Practice Midwife; Visit Provider Obstetrics & Gynecology
PROC: 10E0XZZ Delivery of Products of Conception, External Approach (ICD-10-PCS; CPT 59514; principal; 2023-11-08 18:10)
DX: O10.92 Unspecified pre-existing hypertension complicating childbirth (principal); O98.32 Other infections with a predominantly sexual mode of transmission complicating childbirth; Z37.0 Single live birth; Z3A.37 37 weeks gestation of pregnancy; O62.2 Other uterine inertia; B00.9 Herpesviral infection, unspecified; O99.344 Other mental disorders complicating childbirth; F41.9 Anxiety disorder, unspecified; O36.8330 Maternal care for abnormalities of the fetal heart rate or rhythm, third trimester, not applicable or unspecified
CPT/HCPCS: 36415; 80053; 85025; 86592; 86703; 86850; 86900; 86901; 88307; A9270; G0432; J0456; J0690; J1200; J1885; J2270; J2274; J2371; J2405; J2590; J2765; J2795; J3010; J7030; J7120